=== PATIENT | female | born 2000 ===

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

== ENCOUNTER 2021-09-07 14:14 | Emergency (ER) | payer BC ==
[~2021-09-07] VITALS: Ht 160 cm; Wt 52.2 kg
[~2021-09-07 14:14] MED LIST: AMOXICILLIN 500 MG CAPSULE; AMOXICILLIN 875 MG TABLET; CITALOPRAM HBR 40 MG TABLET; IBUPROFEN 600 MG TABLET; VENLAFAXINE HCL ER 75 MG CAP
--- NOTE | 2021-09-07 14:45 | NUR ---
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 pt verbalized s/p accident she had lost of vision and seeing "spots" on her right eye for 3 hours coworkers took her to urgent care but was sent home afterwards. pt came in the ER c/o headache on the occipital area radiating to the back of the neck with a scale of 4/10, nausea w/o vomiting. pt also stated that she has trouble remembering things, focusing/concentrating. she also c/o bilateral tingling sensation on the hands and feet. pt denies SOB, chest pain.
--- NOTE | 2021-09-07 16:09 | NUR ---
Patient discharged to home in stable condition. Written and verbal after care instructions given. Patient verbalizes understanding of instructions. Stressed follow up or return to ER for worsening s/s.
[2021-09-07 16:10] VITALS: BP 110/64
== END 2021-09-07 16:11 | disposition home or self-care (01) ==
LOC: ER 14:14
DX: R51.9 Headache, unspecified (principal); R45.86 Emotional lability; F07.81 Postconcussional syndrome; M54.2 Cervicalgia
CPT/HCPCS: 70450; 72125; A4663